=== PATIENT | female | born 1985 | race Caucasian/White ===

== ENCOUNTER → 2017-03-20 | Outpatient (CLI) | payer OTHER ==
[~2017-03-20] MED LIST: ACHYD1T PO; PREN1TAB14 PO
== END ==
LOC: LAB 07:34
PROVIDERS: ATTEND Obstetrics & Gynecology Reproductive Endocrinology
DX: Z32.00 Encounter for pregnancy test, result unknown (principal)
CPT/HCPCS: 36415; 84144; 84702

== ENCOUNTER → 2017-03-22 | Outpatient (CLI) | payer OTHER | LOC: LAB 07:24 | PROVIDERS: ATTEND Obstetrics & Gynecology Reproductive Endocrinology | DX: Z32.01 Encounter for pregnancy test, result positive (principal) | CPT/HCPCS: 36415; 84144; 84702 ==

== ENCOUNTER 2019-03-09 11:46 | Day surgery (SDC) | payer OTHER ==
[2019-03-09] VITALS (9 sets, daily range): BP systolic 115–138; BP diastolic 82–94
[~2019-03-09] VITALS: Ht 177 cm; Wt 78.6 kg
[~2019-03-09 11:46] MED LIST changes: +DOCU100C37 PO; +IBUP-1780 PO; +OXYC1TAB87 PO
[2019-03-09] MEDS ORDERED: D5 LR IV SOLUTION 1,000 ML IV SCH (11:59)
[2019-03-09] MEDS ORDERED: KETOROLAC 30 MG/ML VIAL IVP NR (12:00)
[2019-03-09] MEDS ORDERED: MEPERIDINE (DEMEROL) INJ 100 MG/ML IM ONE (12:00)
[2019-03-09] MEDS ORDERED: ONDANSETRON 4 MG/2 ML (SDV) Z0FRAN IVP PRN ×3 (12:00→13:30)
[2019-03-09] MEDS ORDERED: PROMETHAZINE INJ 25 MG/ML (PHENERGAN) AMP IM ONE (12:00)
[2019-03-09] MEDS ORDERED: oxyCODONE/APAP 5/325MG (PERCOCET 5) TABLET PO PRN (12:00)
[2019-03-09] MEDS ORDERED: OXYC1TAB87 PO (12:02)
[2019-03-09] MEDS: LACTATED RINGERS 1,000 ML IV PRN ×2 (12:05→12:51)
--- NOTE | 2019-03-09 12:05 | Discharge Instructions ---
Discharge Instructions Discharge Medications New, Converted or Re-Newed RX: RX on Chart Patient Instructions Return to The Hospital For: As directed Activity & Diet Discharge Diet: No Restrictions Activity as Tolerated: Yes Orders-Post D/C & Referrals Follow Up Appt: Call to make follow up appt. for patient in 10 Ds. Activity: Rest for 24 hours, than as tolerated. Diet: As tolerated-Clear Liquids only if nauseated. Patient to return to the clinic as soon as possible for: Temperature greater than 101F, Severe Pain, Foul discharge from incision or vagina, Excessive Bleeding (more than a period). YAW ESCOBAR MD Mar 09, 2019 12:05
[2019-03-09] MEDS ORDERED: LEVOFLOXACIN 250 MG/50 ML IVPB 50 ML ONE (12:07)
[2019-03-09 12:15] LABS: BASOPHILS # (AUTO) 0.1 10^3/uL (0.0-0.1); BASOPHILS % (AUTO) 1 % (0-10); EOSINOPHILS % (AUTO) 0 % (0-10); HEMATOCRIT 46 % (35-52); HEMOGLOBIN 15.3 G/DL (11.5-16.0); LYMPHOCYTES # (AUTO) 1.3 X 10^3 (1.0-4.0); LYMPHOCYTES % (AUTO) 9 % (12-44); MEAN CORPUSCULAR HEMOGLOBIN 29 PG (25-34); MEAN CORPUSCULAR HGB CONC 33 G/DL (32-36); MEAN CORPUSCULAR VOLUME 88 FL (80-99); MONOCYTES % (AUTO) 7 % (0-12); NEUTROPHILS # (AUTO) 12.4 X 10^3 (1.8-7.8); NEUTROPHILS % (AUTO) 84 % (42-75); PLATELET COUNT 172 10^3/uL (130-400); WHITE BLOOD COUNT 14.8 10^3/uL (4.3-11.0)
[2019-03-09] MEDS ORDERED: proPOfol 200 MG/20 ML (DIPRIVAN) VIAL IV ONE (12:22)
[2019-03-09] MEDS ORDERED: LIDOCAINE PF 2% 5 ML (XYLOCAINE) VIAL ONE (12:22)
[2019-03-09] MEDS ORDERED: SUCCINYLCHOLINE INJ 100 MG/5 ML SYR ONE (12:22)
[2019-03-09] MEDS ORDERED: fentaNYL INJECTION 100 MCG/2 ML AMP ONE (12:23)
[2019-03-09] MEDS ORDERED: MIDAZOLAM 2 MG/2 ML (VERSED) VIAL ONE (12:23)
[2019-03-09] MEDS ORDERED: SEVOFLURANE (ULTANE) 15 ML INHAL SOLN ONE ×2 (12:26→12:55)
--- NOTE | 2019-03-09 12:31 | Progress Note-Pre Operative ---
Pre-Operative Progress Note H&P Reviewed The H&P was reviewed, patient examined and no changes noted. Date Seen by Provider: Mar 09, 2019 Time Seen by Provider: 12:31 Date H&P Reviewed: Mar 09, 2019 Time H&P Reviewed: 12:31 Pre-Operative Diagnosis: Left bartholin abscess YAW ESCOBAR MD Mar 09, 2019 12:31
--- NOTE | 2019-03-09 12:33 | Progress Note-Post Operative ---
Post-Operative Progess Note Surgeon (s)/Appliance Repairer (s) Surgeon YAW ESCOBAR MD Appliance Repairer: no Pre-Operative Diagnosis Left bartholin abscess Post-Operative Diagnosis same Procedure & Operative Findings Date of Procedure 03/09/19 Procedure Performed/Findings marsupilaization left bartholin abscess Anesthesia Type GETA Estimated Blood Loss Estimated blood loss (mL): minimal Specimens/Packing Specimens Removed culture abscess Packing: no YAW ESCOBAR MD Mar 09, 2019 12:32
[2019-03-09] MEDS ORDERED: DEXAMETHASONE 10 MG/ML (DECADRON) 1 ML VIAL ONE (12:46)
[2019-03-09] MEDS ORDERED: ROCURONIUM 10 MG/ML 5 ML SYRINGE IV ONE (12:46)
[2019-03-09] MEDS ORDERED: LACTATED RINGERS 1,000 ML IV ONE (12:55)
[2019-03-09 13:12] LABS: BAND NEUTROPHILS 2 %; BASOPHILS % (MANUAL) 0 %; EOSINOPHILS % (MANUAL) 0 %; LYMPHOCYTES % (MANUAL) 9 %; MONOCYTES % (MANUAL) 4 %; NEUTROPHILS % (MANUAL) 84 %; RBC MORPH NORMAL; REACTIVE LYMPHOCYTES 1 %; TOXIC GRANULATION/VACUOLAZATIO 1+
[2019-03-09] MEDS ORDERED: MEPERIDINE (DEMEROL) INJ 50 MG/ML IVP ONE ×2 (13:30)
[2019-03-09] MEDS ORDERED: morphine INJ 10 MG/ML 1ML (SYR OR VIAL) IVP ONE ×2 (13:30)
--- NOTE | 2019-03-09 19:20 | OPERATIVE REPORT ---
DATE OF SERVICE: 03/09/2019 PREOPERATIVE DIAGNOSIS: Left Bartholin abscess. POSTOPERATIVE DIAGNOSIS: Left Bartholin abscess. OPERATIVE PROCEDURE: Marsupialization of left Bartholin abscess. OPERATIVE DESCRIPTION: With the patient in supine position under satisfactory general anesthesia, she was repositioned in the dorsal lithotomy position in the [facility] cane stirrups and prepped and draped in the usual fashion for vaginal surgery. The inferior left labia majora had approximately 3 x 4 cm fluctuant mass with surrounding erythema. There was minimal induration. The lesions appeared to be coming to ahead just distal to the hymenal ring at about the 5 o'clock position. Two sutures of 3-0 Vicryl Rapide were placed into and out of the abscess cavity and then an incision was made between those two sutures. The midportion of each suture was brought out through the incision and cut and then the four remaining sutures tagged the four cardinal positions, anterior, posterior, left and right. Additional sutures now of 3-0 Vicryl Rapide were used to suture the cyst cavity lining to the skin between each of the cardinal sutures and then the cardinal sutures themselves were tied. The cavity drained green purulent discharge on opening with the scalpel. Culture of the cavity was obtained. The cavity was copiously irrigated. There was no bleeding at this point. The patient tolerated the procedure well. Sponge and needle counts were correct. An estimated blood loss was minimal. The patient was now uneventfully awakened from general anesthesia and transferred to recovery room in stable condition with plans for discharge home [facility]. Job ID: [id number] DocumentID: [id number] Dictated Date: 03/09/2019 13:05:05 Planning And Analysis Manager Date: 03/09/2019 19:18:53 Dictated By: YAW ESCOBAR MD
== END 2019-03-09 14:55 | disposition home or self-care (01) ==
LOC: SDC 11:46
PROVIDERS: ATTEND Obstetrics & Gynecology
DX: N75.1 Abscess of Bartholin's gland (principal); Z79.891 Long term (current) use of opiate analgesic
CPT/HCPCS: 36415; 84703; 85007; 85027; 87070; 87075; 87077; 87081; 87186; 87205

== ENCOUNTER → 2019-10-19 | Outpatient (CLI) | payer OTHER ==
--- NOTE | 2019-10-19 09:28 | Diagnostic Imaging Report ---
PROCEDURE: Ultrasound abdomen complete. TECHNIQUE: Multiple Real-time grayscale images were obtained of the abdomen in various projections. INDICATION: Right upper quadrant pain. FINDINGS: The liver parenchyma appears normal. The long axis is 16 cm. The bile ducts are not dilated. The common duct is 4 mm. The gallbladder appears normal without gallstones or wall thickening. No pericholecystic fluid. The spleen is not enlarged measuring 10 cm. The aorta, vena cava, and portal vein appear normal with Doppler sampling. The right kidney measures 10 x 5.7 x 4.6 cm. The left kidney measures 12 x 5 x 4.5 cm. There is no hydronephrosis, calculus, or renal mass. There is no ascites. IMPRESSION: Normal abdominal ultrasound. Dictated by: Dictated on workstation # [id number]
== END ==
LOC: RAD 08:09
PROVIDERS: ATTEND Physician Assistant
DX: R10.11 Right upper quadrant pain (principal)
CPT/HCPCS: 76700